=== PATIENT | female | born 1935 | race Caucasian/White ===

== ENCOUNTER 2017-11-11 11:25 | Emergency (ER) | payer MEDICARE, OTHER ==
[2017-11-11 11:53] VITALS: BMI 31.4
[2017-11-11 12:49] VITALS: RESP 20; O2SAT 97
[2017-11-11] MEDS ORDERED: Aluminum Hydroxide/Magnesium Hydroxide Susp (30 mL) PO STA (13:05)
--- NOTE | 2017-11-11 13:07 | C.PDOC ---
History Of Present Illness 82 y/o female comes to ed with son c/o right hip pain and back pain s/p accidentally fall out of bed on Monday. pt was seen by pmd on . pt reirts pain all over, taking naproxen for guan and c/o abdominal pain from medicine. Time Seen by Provider: 11/11/17 12:11 Chief Complaint (Nursing): Lower Extremity Problem/Injury History Per: Patient History/Exam Limitations: no limitations (4) Current Symptoms Are (Timing): Still Present Severity: Moderate Past Medical History Reviewed: Historical Data, Nursing Documentation, Vital Signs Vital Signs: Last Vital Signs Temp 98.7 F 11/11/17 14:46 Pulse 80 11/11/17 14:46 Resp 20 11/11/17 14:46 BP 144/82 11/11/17 14:46 Pulse Ox 97 11/11/17 19:00 - Medical History PMH: Anxiety, Arthritis, Asthma, Dementia, HTN, Hypothyroidism, Osteoporosis - [facility] Procedures ESOPHAGOGASTRODUODENOSCOPY [EGD] W/CLOSED BIOPSY (08/10/13) Family History: States: Unknown Family Hx - Social History Hx Tobacco Use: No Hx Alcohol Use: No Hx Substance Use: No - Immunization History Hx Tetanus Toxoid Vaccination: No Hx Influenza Vaccination: No Hx Pneumococcal Vaccination: No Review Of Systems Constitutional: Negative for: Fever, Chills Cardiovascular: Negative for: Chest Pain Respiratory: Negative for: Cough, Shortness of Breath Gastrointestinal: Negative for: Abdominal Pain Skin: Positive for: Bruising (multple areas). Negative for: Rash Neurological: Negative for: Weakness, Numbness Physical Exam - Physical Exam Appears: Non-toxic, Other (anxious, easily calmed down) Skin: Warm, Dry, Ecchymosis (to midline lumbar area, right mid montilla, right upper leg. ) Head: Atraumatic, Normacephalic Eye(s): bilateral: Normal Inspection, PERRL Oral Mucosa: Moist Neck: No Midline Cervical Tenderness, No Paracervical Tenderness, Supple Chest: No Deformity, No Tenderness Cardiovascular: Rhythm Regular, No Murmur Respiratory: No Decreased Breath Sounds, No Rales, No Rhonchi, No Wheezing Gastrointestinal/Abdominal: Bowel Sounds, Soft, No Tenderness, No Distention, No Guarding, No Rebound Back: No CVA Tenderness, No Vertebral Tenderness Extremity: Other (tednerenss to right hip with from, pt ambulates well with walker. ) Pulses: Left Dorsalis Pedis: Normal, Right Dorsalis Pedis: Normal Neurological/Psych: Oriented x3, Normal Speech, Normal Cognition, Normal Cranial Nerves, Normal Motor, Normal Sensation ED Course And Treatment O2 Sat by Pulse Oximetry: 97 Medical Decision Making Medical Decision Making: [id number] pt doesn't want to wait for xray reports, feels much better. will d/c pt and contact later if any acute fx. pt ambulating well in no acute distress. Disposition Counseled Patient/Family Regarding: Studies Performed, Diagnosis, Need For Followup, Rx Given - Disposition Referrals: Richar Thomas MD [Medical Doctor] - Disposition: HOME/ ROUTINE Disposition Time: 14:46 Condition: IMPROVED Additional Instructions: Please take tylenol for pain; avoid ibuprofen. motrin and aleve since it upsets your stomach.; Talk to Dr Thomas about your zoloft. Take ompepzole as prescribed. Please use walker for stability. Return to ER for any worse symptoms. Prescriptions: Acetaminophen [Tylenol 325mg tab] 650 mg PO Q6 #30 tab Instructions: Taking Care of Bruises Forms: General Discharge Instructions, [facility] (Marshallese) Print Language: CHILEAN - Clinical Impression Clinical Impression: Fall from bed, Multiple contusions
[2017-11-11] MEDS ORDERED: Aluminum Hydroxide/Magnesium Hydroxide Susp (30 mL) ONE (13:16)
[2017-11-11 14:46] VITALS: BP 144/82; PULSE 80; TEMP 98.7
--- NOTE | 2017-11-11 16:56 | RAD ---
Lumbar spine three views History: Fall. Weakness. Comparison: None available. Findings: Limited evaluation of the lumbar spine given gaseous distention of bowel. Moderate scoliotic curvature of the mid lumbar spine. Anterolisthesis of L5 on S1. Loss of height of the L2, L3, and L4 vertebral bodies. Multilevel disc space narrowing with endplate sclerosis and anterior osteophyte formation seen throughout the lumbar spine as well as within the lower thoracic spine. Lower level facet hypertrophy and sclerosis. Calcification within the aorta. Incidentally noted is a right total hip prosthesis. 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 Impression: Limited evaluation of the lumbar spine given gaseous distention of bowel. Moderate scoliotic curvature of the mid lumbar spine. Anterolisthesis of L5 on S1. Loss of height of the L2, L3, and L4 vertebral bodies. Multilevel disc space narrowing with endplate sclerosis and anterior osteophyte formation seen throughout the lumbar spine as well as within the lower thoracic spine. Lower level facet hypertrophy and sclerosis. If pain persists, consider correlation with MRI.
--- NOTE | 2017-11-11 17:05 | RAD ---
Pelvis and right hip three views History: Pain. Injury. Comparison: None available. Findings: Right hip: Status post right total arthroplasty. Prosthesis appears aligned without evidence of dislocation. Productive change at the right greater and lesser trochanters. No evidence for acute displaced fracture or dislocation of the right hip. Limited evaluation of the remainder of the bony pelvis demonstrates prominent degenerative changes in the lower lumbar spine. In addition, there are severe degenerative changes of the left hip joint space with joint space narrowing, subchondral sclerosis, and osteophytosis. Marked productive change noted at the medial and lateral aspects of the left femoral head limit evaluation for fracture particularly an impacted fracture. If there is concern for osseous injury at this level, correlation with MRI is recommended. Impression: 1. Status post right total arthroplasty. Prosthesis appears aligned without evidence of dislocation. Productive change at the right greater and lesser trochanters. No evidence for acute displaced fracture or dislocation of the right hip. 2. Severe degenerative changes of the left hip joint space with joint space narrowing, subchondral sclerosis, and osteophytosis. Marked productive change noted at the medial and lateral aspects of the left femoral head limit evaluation for fracture particularly an impacted fracture. If there is concern for osseous injury at this level, correlation with MRI is recommended.
== END 2017-11-11 14:56 | disposition home or self-care (01) ==
LOC: C.ER 11:25
DX: T14.8XXA Other injury of unspecified body region, initial encounter (principal); W06.XXXA Fall from bed, initial encounter; I10 Essential (primary) hypertension; E03.9 Hypothyroidism, unspecified; M81.0 Age-related osteoporosis without current pathological fracture